=== PATIENT | female | born 1975 | race African-American/Black ===

== ENCOUNTER 2018-09-25 08:54 | Day surgery (SDC) | payer OTHER ==
[~2018-09-25] VITALS: Ht 160 cm; Wt 70.3 kg
[~2018-09-25 08:54] MED LIST: DEPO PROVERA
[2018-09-25 10:24] VITALS: Ht 160 cm; Wt 70.3 kg
[2018-09-25] MEDS ORDERED: no home meds (10:36)
[2018-09-25 11:30] VITALS: BP 126/75; PULSE 79; RESP 18
[2018-09-25] MEDS ORDERED: FENTAnyl 50 MCG/ML VIAL ONE (11:54)
[2018-09-25] MEDS ORDERED: MIDAZOLAM 1 MG/ML 2 ML INJ ONE ×3 (11:54)
== END 2018-09-25 12:25 | disposition home or self-care (01) ==
LOC: GIL 08:54
PROVIDERS: ATTEND Internal Medicine Gastroenterology
DX: Z12.11 Encounter for screening for malignant neoplasm of colon (principal)
CPT/HCPCS: 45378; 84703; J2250; J3010